=== PATIENT | female | born 1950 | race Caucasian/White ===

== ENCOUNTER 2017-09-17 11:46 | Observation (INO) ==
[2017-09-17] MEDS ORDERED: Hyoscyamine 0.5 MG/ML MLS IVP ONE ×2 (13:25→15:00)
[2017-09-17] MEDS ORDERED: Ondansetron 4 MG/2 ML VIAL IVP ONE (13:26)
[2017-09-17] MEDS ORDERED: 0.9 % Sodium Chloride 1,000 ML IVC ONE (13:28)
--- NOTE | 2017-09-17 13:32 | Emergency Department Note ---
Disposition Clinical Impression: Abdominal pain Qualifiers: Abdominal location: right upper quadrant Qualified Code(s): R10.11 - Right upper quadrant pain Cholelithiasis Qualifiers: Cholelithiasis location: gallbladder Cholecystitis presence: with cholecystitis Cholecystitis acuity: unspecified acuity Biliary obstruction: without biliary obstruction Qualified Code(s): K80.00 - Calculus of gallbladder with acute cholecystitis without obstruction Disposition: Admitted As Inpatient Condition: Fair Instructions: Biliary Colic (ED) Reasons to Return/Additional Instructions: 1) Follow up with Dr. Khoury next week. Call on Wednesday. 2) Follow the diet as discussed with avoidance of greasy fatty foods 3) the pain medication and nausea medication as directed 4) as we discussed, return emergently for any worsening or concerning symptoms. Prescriptions: Ondansetron ODT [Zofran ODT] 4 mg SL Q8HR PRN #10 tab.rapdis PRN Reason: Nausea Hyoscyamine SL [Levsin SL] 0.125 mg SL TID PRN #15 tab.subl PRN Reason: Pain Referrals: Catarina Adams MD [Primary Care Provider] - Armen Khoury DO [Partnered Physician] - Forms: ED Satisfaction Letter, Work/School Release Time of Disposition: 14:45 Abdominal Pain HPI - General Chief Complaint: ED Abdominal Pain Stated Complaint: gallbladder pain, can't eat or drink. Time Seen by Provider: 09/17/17 13:12 Source: patient Mode of arrival: ambulatory Limitations: no limitations Nursing Notes Reviewed: Yes Vital Signs Reviewed: Yes - History of Present Illness HPI Narrative: 66-year-old female with a history of known cholelithiasis as well as ACS with stents placed on Plavix presents for evaluation of right upper quadrant pain. Patient had a recent ultrasound approximately 6 weeks ago. Patient has outpatient surgery scheduled for cholelithiasis on the of this month. Patient states that she started to have a gallbladder attack started yesterday epigastric and right upper quadrant pain immediately postprandial. Patient's been nothing by mouth since around 1730 last night. Patient denies any diarrhea or constipation. No fevers. No chest pain. Patient did not take any pain medication prior to arrival. Pain Scale: 10 - Related Data Allergies Allergy/AdvReac Type Severity Reaction Status Date / Time acetaminophen Allergy Anaphylaxis Verified 09/17/17 12:03 Opioids - Morphine Analogues Allergy Anaphylaxis Verified 09/17/17 12:03 Penicillins Allergy Anaphylaxis Verified 09/17/17 12:03 Sulfa (Sulfonamide Allergy Anaphylaxis Verified 09/17/17 12:03 Antibiotics) All systems ED: reviewed and negative except as stated. Constitutional: Reports: as per HPI. Denies: fever Eyes: Reports: as per HPI ENT ED: Reports: as per HPI Cardiovascular: Reports: as per HPI. Denies: chest pain Respiratory: Reports: as per HPI. Denies: cough, dyspnea Gastrointestinal: Reports: as per HPI, abdominal pain. Denies: nausea, vomiting Genitourinary: Reports: as per HPI Musculoskeletal: Reports: as per HPI Integumentary: Reports: as per HPI Neurological: Reports: as per HPI Psychiatric: Reports: as per HPI Endocrine: Reports: as per HPI Hematological/Lymphatic: Reports: as per HPI Allergic/Immunologic: Reports: as per HPI Abdominal Pain PMH - Past Medical History Medical history: Reports: no medical history, asthma, COPD, coronary artery disease Female Surgical History: Reports: , Tonsillectomy Psychiatric history: Reports: no psych history - Social History Smoking status: Current every day smoker Physical Exam - General Limitations: no limitations General appearance: alert, in no apparent distress - Head Head exam: atraumatic, normocephalic, normal inspection - Eye Eye exam: Present: normal appearance, PERRL, EOMI - ENT ENT exam: normal exam, mucous membranes moist - Neck Neck exam: Present: normal inspection - Chest Chest inspection: Present: normal inspection - Respiratory Respiratory exam: Present: normal lung sounds bilaterally - Cardiovascular Cardiovascular exam: Present: regular rate, normal rhythm - Abdominal Exam Abdominal exam: Present: soft, tenderness, Jewell's sign. Absent: distention, guarding, rebound - Extremities Exam Extremities exam: Present: normal inspection - Back Exam Back exam: Present: normal inspection. Absent: CVA tenderness (R), CVA tenderness (L) - Neurological Exam Neurological exam: Present: alert, oriented X3 - Skin Skin exam: Present: warm, dry, intact, normal color Course Course Narrative: Patient seen and examined. Patient does not have an acute abdomen. Patient will get a gallbladder ultrasound as well as basic labs including an hepatic and lipase. Symptomatically. Disposition pending. - Reevaluation(s) Reevaluation #1: Patient's resting comfortably. No needed this time. Time: 14:15 Reevaluation #2: Apparently the patient seen to be going to surgery today. Dr. Khoury at bedside. Time: 14:57 - Consultations Consultation #1: Spoke with Dr. Khoury, who states that she can follow-up next week. Time: 14:29 Vital Signs Temperature 98.7 F 09/17/17 12:00 Pulse Rate 93 09/17/17 12:00 Respiratory Rate 18 09/17/17 12:00 Blood Pressure 117/71 09/17/17 12:00 O2 Sat by Pulse Oximetry 97 09/17/17 12:00 Temperature 98.7 F 09/17/17 12:00 Pulse Rate 93 09/17/17 12:00 Respiratory Rate 18 09/17/17 12:00 Blood Pressure 117/71 09/17/17 12:00 O2 Sat by Pulse Oximetry 97 09/17/17 12:00 Oxygen Delivery Oxygen Delivery Room Air Abdominal Pain - MDM Narrative Medical decision making narrative: 66-year-old female with a history of known cholelithiasis presents for evaluation of right upper quadrant pain. Patient states she had [facility]. Patient notes a gallbladder attack that occurred last night. Patient's been having nausea vomiting and right upper quadrant pain. Patient had basic lab work which shows a mild leukocytosis which is nonspecific as well as no elevation of her lipase are liver enzymes. Patient's abdomen is nonsurgical. Discussed the case with Dr. Khoury regarding the ultrasound findings as well as labs and workup and states that he can move the surgery until next week. Patient need to be followed next week. This was discussed with the patient at bedside. Patient agrees. - Lab Data Lab results reviewed: Yes I reviewed the patient's lab results. Result diagrams: 09/17/17 13:02 09/17/17 13:02 Lab Results 09/17/17 09/17/17 Range/Units 13:02 13:02 WBC 11.2 H (4.3-11.1) K/mcL RBC 4.55 (3.82-4.97) M/mcL Hgb 13.8 (11.5-15.4) g/dL Hct 41.7 (35.3-44.9) % MCV 91.6 (83.0-100.0) fL MCH 30.3 (28.0-33.3) pg MCHC 33.1 (31.6-35.5) g/dL RDW 12.3 (11.5-14.5) % Plt Count 440 H (140-400) K/mcL MPV 10.5 (9.4-12.4) fL Immature Gran % 0.5 (0-4) % Seg Neutrophils % 85.6 % Lymphocytes % 7.3 % Monocytes % 6.3 % Eosinophils % 0.0 % Basophils % 0.3 % Neutrophils # 9.6 H (1.6-8.9) K/mcL Lymphocytes # 0.8 (0.6-4.6) K/mcL Monocytes # 0.7 (0.0-1.3) K/mcL Eosinophils # 0.0 (0.0-0.6) K/mcL Basophils # 0.0 (0.0-0.2) K/mcL Sodium 132 L (136-145) mEq/L Potassium 4.1 (3.5-5.1) mEq/L Chloride 99 (98-107) mEq/L Carbon Dioxide 24 (23-29) mEq/L BUN 8 (8-23) mg/dL Creatinine 0.60 (0.60-1.20) mg/dL Est GFR ( Amer) > 60 (> 60) Est GFR (Non-Af Amer) > 60 (> 60) BUN/Creatinine Ratio 13 (6-26) Glucose 119 H (70-105) mg/dL Calculated Osmolality 273 L (280-300) Calcium 9.8 (8.6-10.3) mg/dL Total Bilirubin 0.6 (0.3-1.0) mg/dL Direct Bilirubin 0.1 (0.0-0.2) mg/dL Indirect Bilirubin 0.5 (0.0-1.2) mg/dL AST 18 (13-39) Units/L ALT 11 (7-52) Units/L Alkaline Phosphatase 107 H (34-104) Units/L Serum Total Protein 6.9 (6.4-8.9) g/dL Albumin 4.2 (3.5-5.7) g/dL Globulin 2.7 (2.4-3.5) g/dL Albumin/Globulin Ratio 1.6 (1.1-2.2) Lipase 15 (11-82) Units/L - Radiology Data Radiology results reviewed: Yes I reviewed the patient's radiology results. Gallbladder Ultrasound 09/17/17 13:24 IMPRESSION: Cholelithiasis. 1 of the gallstones is seen in the gallbladder neck. Nonspecific gallbladder wall thickening and mild pericholecystic fluid. Abnormal findings of the gallbladder are equivocal for acute or chronic cholecystitis. Further evaluation with HIDA scan may be beneficial. D/ / Lincoln Serra MD / Lincoln Serra MD Interpreting Provider: Lincoln Serra MD Attestation Statement - Attestation Attestation: I examined this patient and my medical decision-making was reviewed with the Resident Physician. I agree with the documented findings, disposition and treatment plan as described except to the extent set forth below. Patient ED with right upper quadrant pain. Onset last night. Patient states she was recently diagnosed with gallstones. She scheduled for cholecystectomy with Dr. Khoury on October 13. On examination she has some right upper quadrant tenderness. She has not guarding. Abdomen is soft. Plan. Labs and ultrasound gallbladder. Ultrasound shows a thickened gallbladder wall and some mild fluid. Acute versus chronic cholecystitis. Patient's afebrile well-appearing. We did discuss with surgery who states they will move up her surgery to next week. We will DC.
[2017-09-17 13:50] LABS: Basophils % 0.3 %; Hematocrit 41.7 % (35.3-44.9); Hemoglobin 13.8 g/dL (11.5-15.4); Immature Granulocytes % 0.5 % (0-4); Lymphocytes # 0.8 K/mcL (0.6-4.6); Lymphocytes % 7.3 %; Mean Corpuscular HGB Conc 33.1 g/dL (31.6-35.5); Mean Corpuscular Hemoglobin 30.3 pg (28.0-33.3); Mean Corpuscular Volume 91.6 fL (83.0-100.0); Mean Platelet Volume 10.5 fL (9.4-12.4); Monocytes # 0.7 K/mcL (0.0-1.3); Monocytes % 6.3 %; Neutrophils # 9.6 K/mcL (1.6-8.9); Platelet Count 440 K/mcL (140-400); Red Blood Count 4.55 M/mcL (3.82-4.97); Red Cell Distribution Width 12.3 % (11.5-14.5); Segmented Neutrophils % 85.6 %
[2017-09-17 14:08] LABS: Alanine Aminotransferase 11 Units/L (7-52); Albumin 4.2 g/dL (3.5-5.7); Albumin/Globulin Ratio 1.6 (1.1-2.2); Alkaline Phosphatase 107 Units/L (34-104); Aspartate Amino Transferase 18 Units/L (13-39); BUN/Creatinine Ratio 13 (6-26); Bilirubin,Direct 0.1 mg/dL (0.0-0.2); Bilirubin,Indirect 0.5 mg/dL (0.0-1.2); Bilirubin,Total 0.6 mg/dL (0.3-1.0); Blood Urea Nitrogen 8 mg/dL (8-23); Calcium 9.8 mg/dL (8.6-10.3); Carbon Dioxide 24 mEq/L (23-29); Chloride 99 mEq/L (98-107); Globulin 2.7 g/dL (2.4-3.5); Glucose 119 mg/dL (70-105); Lipase 15 Units/L (11-82); Osmolality,Calculated 273 (280-300); Potassium 4.1 mEq/L (3.5-5.1); Sodium 132 mEq/L (136-145); Total Protein 6.9 g/dL (6.4-8.9); eGFR For African Americans > 60 (> 60); eGFR For Non-African Americans > 60 (> 60)
[2017-09-17] MEDS ORDERED: Ondansetron ODT 4 MG TAB.RAPDIS SL ONE (14:40)
[2017-09-17] MEDS ORDERED: Hyoscyamine SL 0.125 MG TAB.SUBL SL ONE (14:42)
--- NOTE | 2017-09-17 15:37 | Anesthesia Evaluation PreOp ---
Date of Encounter: 09/17/17 Time of Encounter: 15:36 - Past History Planned Operation: Laparoscopic Cholecystectomy Cardiac History: [place], HTN, Hyperlipidemia, Cardiac Stent (stent x 1) Pulmonary History: Smoker (20+ years), Asthma, COPD [employer] History: Denies Any Significant HX Other Medical History: GERD Anesthesia History: No Prior Anesthetic Complications, Past Anesthesia Alcohol Use: none Drug use: none Medications and Allergies Albuterol Sulfate [Ventolin Hfa] 2 puff IH Q4H PRN 09/17/17 [History] Clopidogrel [Plavix] 75 mg PO DAILY 09/17/17 [History] Fluticasone Propionate Nasal [Flonase] 50 mcg NS DAILY PRN 09/17/17 [History] Ipratropium Neb [Atrovent Neb] 0.5 mg IH QID PRN 09/17/17 [History] Ipratropium/Albuterol Sulfate [Combivent Respimat Inhal [place]] 1 puff IH QID PRN 09/17/17 [History] L. Acidophilus/Pectin, [place] [Acidophilus Probiotic Capsule] 1 each PO DAILY [History] Lisinopril [Lisinopril] 2.5 mg PO DAILY 09/17/17 [History] Metoprolol [Lopressor] 25 mg PO DAILY 09/17/17 [History] Montelukast [Singulair] 10 mg PO DAILY 09/17/17 [History] Ranitidine HCl [Zantac] 150 mg PO HS 09/17/17 [History] Roflumilast [Daliresp] 500 mcg PO DAILY 09/17/17 [History] 3 Allergy/AdvReac Type Severity Reaction Status Date / Time acetaminophen Allergy Anaphylaxis Verified 09/17/17 12:03 Opioids - Morphine Analogues Allergy Anaphylaxis Verified 09/17/17 12:03 Penicillins Allergy Anaphylaxis Verified 09/17/17 12:03 Sulfa (Sulfonamide Allergy Anaphylaxis Verified 09/17/17 12:03 Antibiotics) - Meds/Allergy Pre-op Review Medications Reviewed: Yes Allergies Reviewed: Yes Beta Blockers on Current Med List: Yes If Beta Blockers taken, Date/Time (Last Dose taken): 09/16/2017 at 1700 Anesthesia Results - Labs 09/17/17 13:02 09/17/17 13:02 - Imaging EKG: report reviewed (09/17/2017 ) Anesthesia Exam Vital Signs/O2 Sat, Most Current Temp Pulse Resp BP Pulse Ox 98.7 F 93 18 117/71 97 09/17/17 12:00 09/17/17 12:00 09/17/17 12:00 09/17/17 12:00 09/17/17 12:00 Height: 4'6''/1.37 m Weight: 95 lbs/43 kg NPO (# of Hours): 8 Pain Scale: 0 Pain Scale Used: Numeric (1 - 10) - HEENT Pupil (Motor): EOMI Mallampati: II Teeth: Edentulous Oral Opening: Greater than 3 - [employer] LOC: Oriented [employer] Motor: Normal RUE, Normal LUE, Normal RLE, Normal LLE, Normal Face [employer] Sensory: Normal: RUE, LUE, RLE, LLE, Face - Cardiac Rhythm: Regular Murmur: None - Pulmonary Breath Sounds: bilateral Clear Respiratory Effort: Symmetrical Anesthesia Assess/Plan ASA Score: 3 Modified [place] Scale for Level of Consciousness: Cooperative, oriented, and tranquil Anesthetic Plan: General Monitoring Plan: Standard Monitors Recovery Plan: PACU
[2017-09-17] MEDS ORDERED: Albuterol 2.5 MG/3 ML NEBULIZER ONE (16:03)
--- NOTE | 2017-09-17 16:05 | History & Physical Report ---
Date of Encounter: 09/17/17 Time of Encounter: 16:04 24 Hour HP Update - Instructions Instructions: If the History and Physical is less than 30 days old and was completed prior to A.M. admission and or procedure and has NOT been updated on calendar day of procedure please complete this update prior to performing procedure. - Update Patient reports changes in Medical Condition: No Changes in examination, assessment, or condition: No Changes in Medication: No Preop tests/diagnostics Reviewed: Yes Surgery Remains Indicated: Yes Consent for Planned Operative Procedure(s) Verified: Yes - Pre-Operative Checklist Preoperative Checklist Indicated: Yes Prophylactic Antibiotic Ordered: Yes Home Medications Include Beta Olga: Yes Beta Olga Taken Today (Day of Surgery): Yes
--- NOTE | 2017-09-17 16:06 | Event Note ---
Date of Encounter: 09/17/17 Time of Encounter: 16:05 Patient presented to the emergency department with acute onset of pain. Ultrasound reveals pericholecystic fluid. Therefore she is unable to wait for elective cholecystectomy on October 13. We will proceed with laparoscopic cholecystectomy and cholangiogram today.
[2017-09-17] MEDS ORDERED: ROPIVACAINE HCL/PF 0.5% 30 ML VIAL ONE (16:07)
--- NOTE | 2017-09-17 16:08 | Operative Note ---
Date of procedure: 09/17/17 Pre-op diagnosis: Acute cholecystitis Post-op diagnosis: same Procedure: Laparoscopic cholecystectomy with cholangiogram Anesthesia: AILEENA Surgeon: Armen Khoury Was there an restaurant assistant present: Yes Wrapping Clerk: Joie Ledezma Estimated blood loss (cc): 5 Specimen: Gallbladder Condition: stable Disposition: same day Procedure in Detail: After informed consent, the patient was taken to the operating placed in the supine position. After adequate sedation and anesthesia the right breast was prepped and draped. A preoperative needle localization performed by a radiologist. An incision was made in the right axilla and dissection is carried out through the clavipectoral fascia. Once the fascia was opened and a lymphatic was identified a neoprobe was used to identify an area of increased uptake. The patient undergone a preoperative injection of methylene blue. A lymph node was identified as being blue and also had increased radioactivity. The lymphatics were clipped proximally and distally and transected. Once it was removed and sent to pathology for evaluation. An incision was made around the wire in the right upper outer quadrant. Dissection is carried out with electrocautery and circumferential fashion around the wire. Utilizing 2-D mammographic views I was able to excise a core of tissue down to the level of the chest wall on the left breast. Once it was fully excised, it was marked with ink set to demarcate the margins. Once completed the skin was closed with a 3-0 Vicryl suture followed by 4-0 Vicryl suture. Dermabond was placed and the skin incisions.
[2017-09-17] MEDS ORDERED: *HR* Ropivacaine/PF 0.5% 20 ML VIAL ONE (16:12)
[2017-09-17] MEDS ORDERED: MORPHINE SUL Oral CONC 10 MG/0.5 ML ORAL.SYG ONE (16:18)
[2017-09-17] MEDS ORDERED: *HR* Propofol 200 MG/20 ML VIAL IVP ONE (16:42)
[2017-09-17] MEDS ORDERED: *HR* Midazolam HCl 2 MG/2 ML VIAL ONE (16:42)
[2017-09-17] MEDS ORDERED: *HR* Rocuronium Bromide 50 MG/5 ML VIAL ONE (16:42)
[2017-09-17] MEDS ORDERED: *HR* Succinylcholine 200 MG/10 ML VIAL IVP ONE (16:42)
[2017-09-17] MEDS ORDERED: Ondansetron 4 MG/2 ML VIAL ONE (16:42)
[2017-09-17] MEDS ORDERED: Dexamethasone 4 MG/ML VIAL ONE (16:42)
[2017-09-17] MEDS ORDERED: Lidocaine -MPF 4% 5 ML AMPUL ONE (16:42)
[2017-09-17] MEDS ORDERED: Lidocaine -MPF 2% 2 ML VIAL ONE (16:42)
[2017-09-17] MEDS ORDERED: *HR* FentaNYL (PF) 100 MCG/2 ML VIAL ONE (16:42)
[2017-09-17] MEDS ORDERED: Neostigmine Methylsulfate 3 MG/3 ML SYRINGE ONE (17:00)
[2017-09-17] MEDS ORDERED: Levalbuterol Neb 1.25 MG/3 ML IH ONE (17:33)
--- NOTE | 2017-09-17 18:08 | Anesthesia Evaluation Post Op ---
Date of Encounter: 09/17/17 Time of Encounter: 18:07 - Vital Signs Vital Signs: Vital Signs/O2 Sat, Most Current Temp Pulse Resp BP Pulse Ox 99.3 F 114 28 127/77 90 09/17/17 17:41 09/17/17 17:51 09/17/17 17:51 09/17/17 17:51 09/17/17 17:51 - Lungs Lungs: Clear Ascult./Percussion - Airway Airway: Non-obstructed - Cardiovascular Regular Rate - Mental Status Mental Status: Alert & Oriented, Answers Appropriately - Pain Pain Scale: 1 Pain Scale used: Numeric (1 - 10) - Nausea Vomiting Nausea Vomiting: Not Present - Hydration Hydration: NPO, Has not voided - Discharge PostOp Status: Transfer Patient to floor
[2017-09-17] MEDS ORDERED: D5% in 0.45% NACL 1,000 ML IVC SCH (18:19)
[2017-09-17] MEDS ORDERED: *HR* Promethazine 25 MG/ML VIAL IVP PRN (18:19)
[2017-09-17] MEDS ORDERED: Morphine Oral CONC 5 MG/0.25 ML ORAL.SYG PO PRN (18:19)
[2017-09-17] MEDS ORDERED: Ondansetron 4 MG/2 ML VIAL IVP PRN (18:19)
[2017-09-17] MEDS ORDERED: MORPHINE SUL Oral CONC 10 MG/0.5 ML ORAL.SYG PO PRN (19:15)
[2017-09-17] MEDS ORDERED: Ketorolac 30 MG/ML VIAL IVP PRN (23:19)
[2017-09-18] MEDS ORDERED: Albuterol 2.5 MG/3 ML NEBULIZER IH SCH ×2 (00:30→00:45)
[2017-09-18] MEDS: Albuterol 2.5 MG/3 ML NEBULIZER IH PRN ×2 (01:08→07:38)
[2017-09-18 08:42] VITALS: BP 110/63
--- NOTE | 2017-09-18 11:55 | Discharge Summary ---
Date of Encounter: 09/18/17 Time of Encounter: 11:57 - Discharge Diagnosis (1) Cholelithiasis Priority: Primary Status: Resolved Qualifiers: Cholelithiasis location: gallbladder Cholecystitis presence: with cholecystitis Cholecystitis acuity: acute Biliary obstruction: without biliary obstruction Qualified Code(s): K80.00 - Calculus of gallbladder with acute cholecystitis without obstruction (2) Acute cholecystitis Priority: Primary Status: Resolved - Discharge Medications Prescriptions: Ibuprofen 800 mg PO Q8H PRN #30 tablet PRN Reason: Pain Home Medications: Albuterol Sulfate [Ventolin Hfa] 2 puff IH Q4H PRN 09/17/17 [History] Clopidogrel [Plavix] 75 mg PO DAILY 09/17/17 [History] Fluticasone Propionate Nasal [Flonase] 50 mcg NS DAILY PRN 09/17/17 [History] Ipratropium Neb [Atrovent Neb] 0.5 mg IH QID PRN 09/17/17 [History] Ipratropium/Albuterol Sulfate [Combivent Respimat Inhal [place]] 1 puff IH QID PRN 09/17/17 [History] L. Acidophilus/Pectin, [place] [Acidophilus Probiotic Capsule] 1 each PO DAILY [History] Lisinopril 2.5 mg PO DAILY 09/17/17 [History] Metoprolol [Lopressor] 25 mg PO DAILY 09/17/17 [History] Montelukast [Singulair] 10 mg PO DAILY 09/17/17 [History] Ranitidine HCl [Zantac] 150 mg PO HS 09/17/17 [History] Roflumilast [Daliresp] 500 mcg PO DAILY 09/17/17 [History] Ibuprofen 800 mg PO Q8H PRN #30 tablet 09/18/17 [Rx] Allergies/Adverse Reactions: 3 Allergy/AdvReac Type Severity Reaction Status Date / Time acetaminophen Allergy Anaphylaxis Verified 09/17/17 12:03 Opioids - Morphine Analogues Allergy Anaphylaxis Verified 09/17/17 12:03 Penicillins Allergy Anaphylaxis Verified 09/17/17 12:03 Sulfa (Sulfonamide Allergy Anaphylaxis Verified 09/17/17 12:03 Antibiotics) General Surgery Exam Initial Vital Signs Temp Pulse Resp BP Pulse Ox 98.7 F 93 18 117/71 97 09/17/17 12:00 09/17/17 12:00 09/17/17 12:00 09/17/17 12:00 09/17/17 12:00 - General physical appearance well developed, well nourished, no distress - Respiratory normal expansion, normal respiratory effort, clear to percussion, clear to auscultation - Cardiovascular Cardiovascular exam: Present: RRR, 15, 16 - Abdomen Abdomen general surgery: Present: bowel sounds present, soft, tender (Expected postoperative) Hernia: Present: none - Incision Incision: Present: clean and dry, intact - Integumentary Integumentary general surgery: Present: warm and dry, no abnormal pigmentation - Neurologic Present: CN 2-12 grossly intact, normal coordination, normal sensation - Musculoskeletal Present: normal gait, normal posture - Psychiatric Psychiatric general surgery: Present: A&Ox3, appropriate, oriented to person, oriented to place, oriented to time, speech is normal, memory intact Date of admission: 09/17/17 15:24 Primary care physician: Catarina Adams MD Discharging clinician: Yuli Celis Anticipated date of discharge: 09/18/17 - Patient Status Disposition: Home, Self-Care Condition: Fair Functional capacity at discharge: independent ambulation Overall status at discharge: patient is progressing back to baseline - Discharge Instructions Instructions: Laparoscopic Cholecystectomy (DC) Follow Up With: Catarina Adams MD [Primary Care Provider] - Yuli Celis CNP [Advanced Practice Nurse] - 10/01/17 10:20 am Additional Instructions: General Surgical Discharge Instructions 1. No pushing, pulling, or lifting greater than 15 lbs for 2-4 weeks (depending upon procedure). 2. You may shower beginning today, but no tub baths, soaking, or swimming for 2 weeks. 3. You may resume driving when you are off narcotics and are safe to react in a car. 4. Take ibuprofen every 8 hours for discomfort. If this does not relieve discomfort, you may take the as needed Percocet. Take narcotics as directed. Do not take more narcotics then directed and do not share your narcotics with any other person. Do not drink alcohol while on narcotics. 5. Take stool softeners (Colace) or a water based laxative (Miralax) while taking narcotics. You may hold for loose stools. 6. Report any fevers greater than 100.5F, increase abdominal discomfort, drainage that looks like pus, increased redness or pain at the surgical site, or any vomiting. 7. Report any pain in the calves, shortness of breath, or rapid heartbeat. 8. Follow-up in the office as directed. 9. If you were prescribed antibiotics, do not stop them without talking to your provider. - Diet and Activity Activity: increase activity as tolerated Diet: advance to your usual diet - Hospital Course Hospital course: Ms. Louise is a 66 year old female who presented to the emergency department for right upper quadrant pain. She had previously been seen in the office by Dr. Khoruy and was recommended to undergo a laparoscopic cholecystectomy. She was unable to tolerate her discomfort to the elective surgical date and she therefore presented to the emergency department. Her exam and images were consistent with acute cholecystitis and she was taken to the operating room on where she underwent an uncomplicated laparoscopic cholecystectomy with intraoperative choliangiogram. She states her presurgical discomfort has resolved. She has refused any pain medication while hospitalized stating that she does not need it. She is ambulating avoiding without difficulty, tolerating irregular diet without nausea or vomiting, vital signs are stable, she is afebrile, and we will begin discharge planning to home with a follow-up in the office in approximately 2 weeks. - Time Spent with Patient Total time spent providing and/or coordinating discharge services: Less than 30 minutes
--- NOTE | 2017-09-21 18:27 | Electrocardiograph Report ---
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
== END 2017-09-18 12:39 | disposition home or self-care (01) ==
LOC: 3ANU 11:46 → EMEROO 11:46 → 3ANU 15:33
PROVIDERS: ADMIT Surgery; ATTEND Surgery